=== PATIENT | female | born 1975 | race Caucasian/White ===

== ENCOUNTER 2025-04-01 15:29 | Outpatient (CLI) | payer OTHER, SELFPAY ==
--- NOTE | ~2025-04-01 | MM_ITS ---
EXAMINATION: MM screening mavis BI w jose HISTORY: Screening TECHNIQUE: Craniocaudal and mediolateral oblique 3-D tomosynthesis images were obtained and synthetic 2-D images were generated. CAD analysis was submitted and interpreted. COMPARISON: Comparison to multiple prior studies sequentially, with oldest reviewed study dated 01/13. BREAST PARENCHYMAL COMPOSITION: Dense: The breasts are extremely dense, which lowers the sensitivity of mammography. FINDINGS: There is no evidence of suspicious mass, calcification, or architectural distortion to sugg est malignancy in either breast. There has been no suspicious interval change. IMPRESSION: 1. No mammographic evidence of malignancy. 2. Recommend routine screening mammography in one year. BI-RADS Category 1: Negative Reviewed, dictated and finalized at location []
--- OUTSIDE RECORDS SUMMARY | 2025-04-01 15:35 | XMS_ITS | Clinical Summary ---
Author Organization [facility] Address [address] [place] [address] Care Team Providers Care Driver Engineer Name Role Phone Osiel Rowley MD Primary Care Provider [phone] Social History Tobacco Use Types Packs/Day Years Used Date Smoking Tobacco: Never Assessed Comments Unknown Sex and Gender Information Value Date Recorded Sex Assigned at Not on file Legal Sex Female 5:47 PM CDT Gender Identity Not on file Sexual Orientation Not on file Plan of Treatment Health Maintenance Due Date Last Done Comments Cervical Cancer Screening Pa p Smear (Age 30 to 64) Every 3 Years 1975 Colorectal Cancer Screening Colonoscopy (10 Years) 1975 Annual Physical 1978 Hepatitis C 1993 DTaP, Tdap and Td Vaccines ( 1 - Tdap) 1994 Hepatitis B Vaccines (1 of 3 - 19+ 3-dose series) 1994 Cervical Cancer Screening Pa p with HPV Testing (Age 30 to 64) Every 5 Years 2005 Cervical Cancer Screening with HPV 2005 Mammogram Screening 2015 COVID-19 Vaccine (2023-2 5 season) 2024 Meningococcal B Vaccine Aged Out No l onger eligible based on patient's age to complete this topic Meningococcal Vaccine Aged Out No bobby jose manuel eligible based on patient's age to complete this topic Pneumococcal Vaccine: Pediat rics (0 to 5 Years) and At-Risk Patients (6 to 49 Years) Aged Out No longer eligible b ased on patient's age to complete this topic RSV Immunizations Under 20 Months Aged Out No longer eligible based on patient's age to complete this topic Care Teams Driver Engineer Relationship Specialty Start Date End Date Osiel Rowley MD [facility] - General 08/08/12
--- OUTSIDE RECORDS SUMMARY | 2025-04-01 15:35 | XMS_ITS | Clinical Summary ---
Author Organization [facility] Address [address] [place] [address] Care Team Providers Care Tomography Technologist Name Role Phone Osiel Rowley MD Primary Care Provider Source Comments [facility] [employer],non-owned Affiliates and Associated Physician Practices is amultiple site organization consisting of ambulatory clinics and hospital sitesin [place], [place] and [place]. This disclosure is being madepursuant to the Care Everywhere program and may not contain all information available regarding this patient. Last updated 18.[facility] [employer] Allergies No known active allergies Medications * Be aware that medications may not be up to date on this document. Alwaysverify current medications with the patient. SUMAtriptan Succinate (IMITREX PO) Active Social History Tobacco Use Types Packs/Day Years Used Date Smoking Tobacco: Never Smokeless Tobacco: Never Comments Unknown Sex and Gender Information Value Date Recorded Sex Assigned at Not on file Legal Sex Female 10:03 AM TRAIN ELECTRONIC TECHNICIAN Gender Identity Not on file Sexual Orientation Not on file Last Filed Vital Signs Vital Sign Reading Time Taken Comments Blood Pressure 128/90 10/28/2016 5:07 PM TRAIN ELECTRONIC TECHNICIAN Pulse 88 10/17/2017 6:16 PM TRAIN ELECTRONIC TECHNICIAN Temperature 36.8 C (98.3 F) 10/17/2017 6:16 PM TRAIN ELECTRONIC TECHNICIAN Respiratory Rate 20 10/17/2017 6:16 PM TRAIN ELECTRONIC TECHNICIAN Oxygen Saturation 98% 10/28/2016 5:07 PM TRAIN ELECTRONIC TECHNICIAN Inhaled Oxygen Concentration - - Weight 68 kg (150 lb) 10/28/2016 5:07 PM TRAIN ELECTRONIC TECHNICIAN Height 175.3 cm (5' 9) 10/28/2016 5:07 PM TRAIN ELECTRONIC TECHNICIAN Body Mass Index 22.15 10/28/2016 5:07 PM TRAIN ELECTRONIC TECHNICIAN Plan of Treatment Health Maintenance Due Date Last Done Comments COLOGUARD (AGES 45-75) - COL ON CA SCREENING 1975 COLON MONITORING 1975 COLONOSCOPY - COLON CA SCREENING 1975 CT COLONOGRAPHY - COLON CA SCREENING 1975 Colorectal Cancer Screening 1975 FIT - COLON CA SCREENING 1975 FLEX SIG - COLON CA SCREENING 1975 LIPID TESTING 1975 MAMMOGRAM 1975 HIV SCREENING 1990 HEPATITIS C SCREENING 07/20/1993 DTAP/TDAP/TD VACCINES (1 - Tdap) 1994 HEPATITIS B VACCINE (1 of 3 - 19+ 3-dose series) 1994 PAP SMEAR 1996 COVID-19 VACCINE (1 - 2023-2 5 season) 2024 DEPRESSION SCREENING 09/19/2024 INFLUENZA VACCINE (#1) 2025 ZOSTER VACCINE (1 of 2) 2025 HIB VACCINE Aged Out No longer eligi ble based on patient's age to complete this topic HPV VACCINE Aged Out No longer eligi ble based on patient's age to complete this topic MENINGOCOCCAL (Group B) VACC INE SHARED DECISION-MAKING Aged Out No longer eligibl e based on patient's age to complete this topic MENINGOCOCCAL GROUPS A/C/Y/W VACCINE Aged Out No longer eligible b ased on patient's age to complete this topic Insurance [employer] Care Teams Tomography Technologist Relationship Specialty Start Date End Date Osiel Rowley MD [address] [place] [address] [place] [address] PCP - General Family Medicine 10/28/16
--- OUTSIDE RECORDS SUMMARY | 2025-04-01 15:36 | XMS_ITS | Clinical Summary ---
Author Organization [facility] [address] [facility] Address [address] [place] [address] Care Team Providers Care Senior Windows Engineer Name Role Phone Judy Avendano Primary Care Provider [phone] Allergies No known active allergies Medications aspirin 325 mg tablet Take 1 tablet (325 mg total) by mouth daily as needed for pain Takes with migraines Active ALPRAZolam (Xanax) 0.5 mg tablet 1 tablet (0.5 mg total) 7 Active SUMAtriptan (IMITREX) 100 mg tablet Rx: Sumatriptan Succinate 100 Tablet, TAKE: TAKE 1 TABLET BY MOUTH AT ONSET OF MIGRAINE; MAY REPEAT 1 TABLET IN 2 HOURS IF NEEDED, REFILLS: 0 Active propranoloL (INDERAL) 10 mg tablet Take 1 tablet (10 mg total) by mouth 2 (two) times a day 180 tablet 4 Active venlafaxine XR (EFFEXOR-XR) 75 mg 24 hr capsule Take 1 capsule (75 mg total) by mouth daily Take with food. 90 capsule 1 5 Active ubrogepant (Ubrelvy) 100 mg tabletIndication s:Other migraine with status migrainosus, not intractable TAKE 1 TABLET BY MOUTH ONCE SINGLE DOSE, MAY REPEAT ONCE AFTER 2 HOURS IF NEEDED 12 tablet 1 05/01/202 5 Active Active Problems Problem Noted Date Diagnosed Date Migraine 07/14/2024 Assessment & Plan (07/14/2024 9:18 PM CDT): This is a significant, separately identifiable problem that was evaluated and managed on the same day as the wellness exam Persistent migraine headaches. She runs out of her abortive medicine every month and has been borrowing friends and families. Discussed prevention medicine. She has not tried a beta-cecelia. Her blood pressure should hold it but advised this can be 1 of the side effects. Will start Inderal 10 mg b.i.d.. Encouraged her to monitor readings. If she begins to feel extremely dizzy lightheaded she may have to pull back on it. If she can tolerate will slowly try to titrate up the dose. Encouraged her to call in with readings in a few weeks Perimenopause 07/14/2024 Assessment & Plan (09/24/2024 8:03 PM MENTAL RETARDATION NURSE): Stabilized with EffexorXr 75. Happy with results. Continue same dose Refills to pharmacy Followup 3 months or sooner any problems or concerns. Assessment & Plan (07/14/2024 9:12 PM CDT): This is a significant, separately identifiable problem that was evaluated and managed on the same day as the wellness exam Patient states she has been seeing more and more emotional symptoms and thinks they are related to perimenopause. Has an IUD. Still feels like she has emotional changes about once a month. Very tearful at times. Willing to consider medication as it does seem to be affecting her day-to-day life. Reviewed risks benefits alternatives side effects and proper use. Discussed Effexor off label to help with emotional symptoms but also if she would have some hot flashes she may see improvement. She is willing to try. Take 37.5 mg x 1 week then increase to 75 BMI 25.0-25.9,adult 07/08/2023 Assessment & Plan (07/14/2024 9:14 PM CDT): Weight/BMI is in healthy range. Continue healthy lifestyle to maintain. Assessment & Plan (07/08/2023 11:41 PM CDT): Weight/BMI is in healthy range. Continue healthy lifestyle to maintain. Colon cancer screening 07/08/2023 Assessment & Plan (07/14/2024 9:14 PM CDT): Encouraged to follow back up with Dr. Norman and get rescheduled. Assessment & Plan (07/08/2023 11:42 PM CDT): Colon cancer screening due. Refer back to Dr. Will as last done in 2018 Breast cancer screening by mammogram 07/08/2023 Assessment & Plan (09/24/2024 8:03 PM MENTAL RETARDATION NURSE): Mammogram order provided Assessment & Plan (07/08/2023 11:42 PM CDT): Mammogram order provided Family history of colon cancer in mother 023 Assessment & Plan (07/08/2023 11:42 PM CDT): Due for colon cancer screening Situational anxiety 07/15/2017 Assessment & Plan (09/24/2024 8:03 PM MENTAL RETARDATION NURSE): Stabilized with EffexorXr 75. Happy with results. Continue same dose Refills to pharmacy Followup 3 months or sooner any problems or concerns. Scoliosis 10/19/2012 Assessment & Plan (07/14/2024 9:14 PM CDT): This is a significant, separately identifiable problem that was evaluated and managed on the same day as the wellness exam Patient states she was told she has scoliosis. Has been working with physical therapy as well as the chiropractor but is not seen consistent results. Her daughter has seen Fay Roman for injections and has had great results so would like referral for evaluation. Assessment & Plan (07/08/2023 11:41 PM CDT): Patient states longstanding scoliosis. Noticing more chronic back pain. Encouraged therapy. Order provided. Symptoms persist will send to [facility] scoliosis specialist Resolved Problems Problem Noted Date Diagnosed Date Resolved Date Encounter for immunization 07/14/2024 0 09/24/2024 Assessment & Plan (07/14/2024 9:16 PM CDT): Flu vaccine updated in the office today Hematuria 07/14/2024 09/24/2024 Assessment & Plan (07/14/2024 9:18 PM CDT): Blood in the urine today with a dip in the office. Will check microscopy to determine if further evaluation is needed. Patient currently is completely asymptomatic Need for vaccination 07/08/2023 024 Assessment & Plan (07/08/2023 11:42 PM CDT): Flu vaccine updated in the office today Need for Tdap vaccination 07/08/2023 Assessment & Plan (07/08/2023 11:42 PM CDT): Tdap updated in the office today Lipid screening 07/08/2023 07/14/2024 Assessment & Plan (07/08/2023 11:42 PM CDT): Check labs Diabetes mellitus screening 07/08/2023 07/14/2024 Assessment & Plan (07/08/2023 11:42 PM CDT): Check labs Fatigue 07/08/2023 09/24/2024 Assessment & Plan (07/08/2023 11:42 PM CDT): Probably multifactorial. Check labs and followup to re-evaluate Chronic migraine with aura a nd with status migrainosus, not intractable 07/08/2023 07/14/2024 Assessment & Plan (07/08/2023 11:43 PM CDT): Longstanding history of migraines. Responded well to you Yasmany and an aspirin. Continue to monitor Annual physical exam 07/08/2023 025 Assessment & Plan (07/14/2024 9:16 PM CDT): Encouraged healthy lifestyle, good nutrition and exercise. Encouraged Calcium and Vitamin D and weight bearing exercise for bone health. Reviewed immunizations Reviewed age appropirate screenings. Assessment & Plan (07/08/2023 11:46 PM CDT): Encouraged healthy lifestyle, good nutrition and exercise. Encouraged Calcium and Vitamin D and weight bearing exercise for bone health. Reviewed immunizations Reviewed age appropirate screenings. Intractable migraine without aura and without status migrainosus 07/15/2017 07/14/2024 Left shoulder pain 02/02/2016 5 Encounters Date Type Department Care Team Description 01/18/2025 Results Follow-Up [facility] Family Medicine [address] [address] Judy Avendano PA TSH, Comprehensive metabolic panel, CBC with auto differential, T4, free from Last 3 Months Immunizations Immunization Administration Dates Next Due Influenza, Quadrivalent, Spl it, Preservative Free, Intramuscular 06/29/2023,07/31/2018 Influenza, Trivalent, Preser vative Free, Intramuscular 07/04/2024,2016,07/14/2015 Tdap 06/29/2023 Surgical History Surgery Date Site/Laterality Comments US ABDOMEN COMPLETE W LIVER DOPPLER (C) 10/12/2018 R ight BREAST BIOPSY Medical History Medical History Date Comments Migraine Family History Medical History Relation Name Comments Colon cancer Mother Breast cancer Paternal Grandmother Relation Name Status Comments Brother Alive Father Alive Mother Alive Paternal Grandmother Sister Alive Social History Tobacco Use Types Packs/Day Years Used Date Smoking Tobacco: Never AUDIT-C Answer Date Recorded Q1: How often do you have a drink containing alc ohol? 2-4 times a month 07/04/2024 Q2: How many drinks containi ng alcohol do you have on a typical day when you are drinking? 1 or 2 07/04/2024 Q3: How often do you have si x or more drinks on one occasion? Never 07/04/2024 PHQ-2 Answer Date Recorded PHQ-2 Total Score (If total score is 3 or more points, staff should administer the PHQ-9) 0 07/04/2024 Comments No Sex and Gender Information Value Date Recorded Sex Assigned at Not on file Legal Sex Female 10:28 PM MENTAL RETARDATION NURSE Gender Identity Not on file Sexual Orientation Not on file Obstetrics History Para Term AB IAB SAB Ectopic Multiple Livin g Live Births 1 1 1 Date Outcome GA Total Labor Labor/2nd/3rd Weight Sex Type Anes PTL Pauly A1 A5 Name Clin Term Last Filed Vital Signs Vital Sign Reading Time Taken Comments Blood Pressure 118/74 07/04/2024 1:05 PM CDT Pulse 70 07/04/2024 1:05 PM CDT Temperature 37.2 C (98.9 F) 07/04/2024 1:05 PM CDT Respiratory Rate 18 07/04/2024 1:05 PM CDT Oxygen Saturation 98% 07/04/2024 1:05 PM CDT Inhaled Oxygen Concentration - - Weight 74.8 kg (165 lb) 07/04/2024 1:05 PM CDT Height 172.7 cm (5' 8) 07/04/2024 1:05 PM CDT Body Mass Index 25.09 07/04/2024 1:05 PM CDT Plan of Treatment Health Maintenance Due Date Last Done Comments Cervical Cancer Screening 1975 Colon Cancer Screening-Colonoscopy 1975 Hepatitis C Screening 1975 Hepatitis B Screening 1993 Covid-19 Vaccine ( season) 2024 03/05/2021, 02/12/2021 Breast Cancer Screening-Mammogram 10/31/2024 10/31/2023 Depression Screening 07/04/2025 07/04/2024, 06/29/2023, 06/29/2023 Regular Well Visit/Exam 18-64 07/04/2025 07/04/2024, 06/29/2023 DTaP/Tdap/Td Vaccine (2 - Td or Tdap) 06/29/2033 06/29/2023 Influenza Vaccine Completed 07/04/2024, , 07/31/2018, Additional history exists Pneumococcal vaccine <65 Aged Out No longer eligible based on patient's age to complete this topic Procedures Procedure Name Priority Date/Time Associated Diagnosis Comments SCREENING MAMMOGRAM BILATERAL W DEEDEE Schedule Routine, Read Routine (OP Routine) 10/31/2023 3:26 PM MENTAL RETARDATION NURSE Breast cancer screening by mammogram from Last 3 Months or Most Recently Relevant to Health Maintenance Results * Screening Mammogram Bilateral W Deedee (10/31/2023 3:26 PM MENTAL RETARDATION NURSE) Anatomical Region Laterality Modality Breast Bilateral Mammography Impressions 11/01/2023 1:18 PM MENTAL RETARDATION NURSE BI-RADS ATLAS category (overall): 2 - Benign There is no mammographic evidence of malignancy. A 1 year screening mammogram is recommended. The patient has been or will be contacted. We recommend annual screening mammography for women at average risk of breast cancer beginning at age 40, based on guidelines of the [employer] (ACR Practice Parameter for the Performance of Screening and Diagnostic Mammography) and [employer]. For women with and elevated risk of breast cancer, please refer to the ACR Practice Parameter for specific screening recommendations. The patient will be entered into a reminder system with a target due date of 1 year for her next screening exam. Narrative 11/01/2023 1:18 PM MENTAL RETARDATION NURSE Screening Mammogram Bilateral W Deedee: 10/31/23 The study was acquired using full field digital technology and interpreted from soft copy. 2D digital mammographic views, as well as 3D digital tomosynthesis were performed in the CC and MLO projections. CLINICAL: Breast cancer screening by mammogram. No relevant medical history has been documented for this patient. History of breast cancer in Paternal Grandmother. COMPARISONS: 01/27/2017 Breast Imaging US Outside Reference 01/27/2017 Breast Imaging Diagnostic Outside Reference 01/13/2017 Breast Imaging Screening Outside Reference BREAST TISSUE: The breasts are heterogeneously dense, which may obscure small masses. FINDINGS: There are multiple similar appearing round and oval circumscribed masses in the upper outer left breast, [id number] depth. Accounting for differences in imaging technique, these masses appear largely similar to prior outside exams, characterized as benign cysts on previous ultrasound. There is no definite new suspicious finding in either breast on mammogram. us Judy NIELSEN IMTadeo MAMMO PROCEDURES Final Result from Last 3 Months or Most Recently Relevant to Health Maintenance Insurance [facility] Address: [address] [address] [place] [address] [facility] Care Teams Senior Windows Engineer Relationship Specialty Start Date End Date Judy Avendano PA [address] [address] PCP - General Internal Medicine 05/09/23
--- OUTSIDE RECORDS SUMMARY | 2025-04-01 15:36 | XMS_ITS | Encounter Summary ---
Author Organization [facility] Care Team Providers Care Density Control Puncher Name Role Phone Judy Avendano Primary Care Provider [phone]- [phone] Encounter Details Date Type Department Care Team (Latest Contact Info) Description 10/26/2018 Orders Only [facility] CLINCONV Provider, MD Jared [address] [place] [address] Social History Tobacco Use Types Packs/Day Years Used Date Smoking Tobacco: Never Comments Unknown Sex and Gender Information Value Date Recorded Sex Assigned at Not on file Legal Sex Female 10:28 PM MEN'S GOLF COACH Gender Identity Not on file Sexual Orientation Not on file documented as of this encounter Plan of Treatment Not on file documented as of this encounter Procedures Procedure Name Priority Date/Time Associated Diagnosis Comments COLONOSCOPY - SCAN 10/26/2018 12 :00 AM MEN'S GOLF COACH documented in this encounter Results * COLONOSCOPY - SCAN (10/26/2018 12:00 AM MEN'S GOLF COACH) Narrative 10/26/2018 12:00 AM MEN'S GOLF COACH Ordered by an unspecified provider. us Historical Provider Final Res ult documented in this encounter Visit Diagnoses Not on filedocumented in this encounter Additional Health Concerns Infection Onset Date Last Indicated Resolved Time COVID: Suspected 11/02/2023 11/02/202311/0211/02/2023 11:31 AM MEN'S GOLF COACH Influenza, adult 11/02/2023 11/02/2023 11/09/2023 3:05 AM MEN'S GOLF COACH documented as of this encounter Care Teams Density Control Puncher Relationship Specialty Start Date End Date Judy Avendano PA [address] [facility] [address] [place] [address] PCP - General Internal Medicine 05/09/23 documented as of this encounter
--- OUTSIDE RECORDS SUMMARY | 2025-04-01 15:36 | XMS_ITS | Referral Summary ---
Author Organization [facility] [address] [facility] Address [address] [place] [address] Care Team Providers Care Wirer Name Role Phone Judy Avendano Primary Care Provider [phone]- [phone] Encounters Date Type Department Care Team Description 01/18/2025 Results Follow-Up [facility] Family Medicine [address] [facility] [address] [place] [address] Judy Avendano PA TSH, Comprehensive metabolic panel, CBC with auto differential, T4, free from Last 3 Months Allergies No known active allergies Medications aspirin [...] 2 HOURS IF NEEDED 12 tablet 1 5 Active Active Problems Problem Noted Date [...] 07/14/2024 Assessment & Plan (09/24/2024 8:03 PM SALES AND MARKETING PROFESSIONAL): Stabilized with EffexorXr 75. Happy with results. [...] 07/08/2023 Assessment & Plan (09/24/2024 8:03 PM SALES AND MARKETING PROFESSIONAL): Mammogram order provided Assessment & Plan (07/08/2023 11:42 PM CDT): Mammogram order provided Family history of colon cancer in mother 023 Assessment & Plan (07/08/2023 11:42 PM CDT): Due for colon cancer screening Situational anxiety 07/15/2017 Assessment & Plan (09/24/2024 8:03 PM SALES AND MARKETING PROFESSIONAL): Stabilized with EffexorXr 75. Happy with results. [...] Order provided. Symptoms persist will send to [facility] scoliosis specialist Resolved Problems Problem Noted [...] is completely asymptomatic Need for vaccination 07/08/2023 Assessment & Plan (07/08/2023 11:42 [...] 07/15/2017 07/14/2024 Left shoulder pain 02/02/2016 5 Immunizations Immunization Administration Dates Next Due Influenza, Quadrivalent, Spl it, Preservative Free, Intramuscular 06/29/2023,07/31/2018 Influenza, Trivalent, Preser vative Free, Intramuscular 07/04/2024,2016,07/14/2015 Tdap 06/29/2023 Social History Tobacco Use Types Packs/Day Years [...] on file Legal Sex Female 10:28 PM SALES AND MARKETING PROFESSIONAL Gender Identity Not on file Sexual Orientation [...] 07/04/2024 1:05 PM CDT Plan of Treatment Not on file Procedures Procedure Name Priority Date/Time Associated Diagnosis Comments SCREENING MAMMOGRAM BILATERAL W DEEDEE Schedule Routine, Read Routine (OP Routine) 10/31/2023 3:26 PM SALES AND MARKETING PROFESSIONAL Breast cancer screening by mammogram from Last 3 Months or Most Recently Relevant to Health Maintenance Results * Screening Mammogram Bilateral W Deedee (10/31/2023 3:26 PM SALES AND MARKETING PROFESSIONAL) Anatomical Region Laterality Modality Breast Bilateral Mammography Impressions 11/01/2023 1:18 PM SALES AND MARKETING PROFESSIONAL BI-RADS ATLAS category (overall): 2 - Benign There is no mammographic evidence of malignancy. A 1 year screening mammogram is recommended. The patient has been or will be contacted. We recommend annual screening mammography for women at average risk of breast cancer beginning at age 40, based on guidelines of the [employer] (ACR Practice Parameter for the Performance of Screening and Diagnostic Mammography) and [employer]. For women with and elevated risk of breast cancer, please refer to the ACR Practice Parameter for specific screening recommendations. The patient will be entered into a reminder system with a target due date of 1 year for her next screening exam. Narrative 11/01/2023 1:18 PM SALES AND MARKETING PROFESSIONAL Screening Mammogram Bilateral W Deedee: 10/31/23 The [...] masses in the upper outer left breast, [id number] depth. Accounting for differences in imaging technique, these masses appear largely similar to prior outside exams, characterized as benign cysts on previous ultrasound. There is no definite new suspicious finding in either breast on mammogram. us Judy NIELSEN IMG MAMMO PROCEDURES Final Result from Last 3 Months or Most Recently Relevant to Health Maintenance Insurance [facility] CHOICE [facility] Care Teams Wirer Relationship Specialty Start Date End Date Judy Avendano PA [address] [facility] [address] [place] [address] PCP - General Internal Medicine 05/09/23
--- OUTSIDE RECORDS SUMMARY | 2025-04-01 15:36 | XMS_ITS | Clinical Summary ---
Author Organization [facility] Address [address] [place] [address] Care Team Providers Care Dental Service Technician Name Role Phone Unavailable Primary Care Provider Unavailabl e Social History Tobacco Use Types Packs/Day Years Used Date Smoking Tobacco: Never Assessed Comments Unknown Sex and Gender Information Value Date Recorded Sex Assigned at Not on file Legal Sex Female 10:48 AM APPOINTMENT SETTER Gender Identity Not on file Sexual Orientation Not on file Plan of Treatment Health Maintenance Due Date Last Done Comments Hepatitis C Virus (HCV) Screening 1975 TdaP Immunization 1975 Hepatitis B Immunization (1 of 3 - 19+ 3-dose series) 1994 Pap Smear 1996 Cervical Cancer Screening (CCS) 2005 HPV/Cotest 2005 Discussion re Starting/Frequency of Mammograms 2015 Colonoscopy 2020 Colorectal Cancer Screening 2020 Influenza Immunization (#1) 05/20/202407/20, 2016, 07/14/2015 SARS-COV-2 Immunization ( season) 2024 Respiratory Syncytial Virus (RSV) Immunization (Adult) (1 - 1-dose 75+ series) 2050 Meningococcal Immunization (ACWY) Aged Out No longer eligible b ased on patient's age to complete this topic Pneumococcal Immunization Combined Aged Out No longer eligible b ased on patient's age to complete this topic Rotavirus Immunization Aged Out No lo nger eligible based on patient's age to complete this topic Insurance [employer] on file
--- OUTSIDE RECORDS SUMMARY | 2025-04-01 15:36 | XMS_ITS | Continuity of Care Document ---
Author Organization [facility] Address [address] [place] [address] Phone Care Team Providers Care Forensic Artist Name Role Phone Galdamez OD, Benjamín Unavailable Unavailable Procedures Procedure Date Contact Lens Hydrophilic, Spherical Medical Tax Contact Lens Hydrophilic, Spherical Tax - Medical Contact Lens Check Contact Lens Check Contact Lens Check Contact Lens Hydrophilic, Spherical Silent Circle Medical Eye Exam & Treatment Office/outpatient Visit, Est Office/outpatient Visit, Est Eye Exam & Treatment Refraction CL Replacement - Vistakon Disp W/BW Soft Tax - Medical Eye Exam & Treatment Refraction CL Replacement - Vistakon Disp W/BW Soft [facility] Medical Advance Directives Directive Yes / No Effective Date File Name No Information Encounters Encounter Description Practice Location Reason(s) For Visit Diagnoses Date Provider Providers Copied on Encounter [facility], [address], [place], [place], [id number], [place] tel:[phone] [facility] No Information Oct-2 9-201 0 Galdamez OD Benjamín. [address], [place], [address], [place]. tel:[phone] [facility], [address], [place], [place], [address], [place] tel:[phone] [facility] No Information Per-0 2-201 0 Galdamez OD Benjamín. [address], [place], [place], [facility], [place]. tel:[phone] [facility], [address], [place], [place], [address], [place] tel:[phone] [facility] No Information Apr-0 1-201 0 Galdamez OD Benjamín. [address], [place], [facility], [place]. tel:[phone] [facility], [address], [place], [place], [address], [place] tel:[phone] [facility] No Information Papito-2 1-201 0 Galdamez OD Benjamín. [address], [place], [facility], [place]. tel:[phone] [facility], [address], [place], [place], [address], [place] tel:[phone] [facility] No Information Papito-1 4-201 0 Galdamez OD Benjamín. [address], [place], [facility], [place]. tel:[phone] [facility], [address], [place], [place], [address], [place] tel:[phone] [facility] No Information Papito-0 7-201 0 Galdamez OD Benjamín. [address], [place], [facility], [place]. tel:[phone] Office/outpat ient Visit, Est [facility], [address], [place], [place], [address], [place] tel:[phone] [facility] No Information Dec-1 7-200 9 Galdamez OD Benjamín. [address], [place], [address], [place]. tel:[phone] Office/outpat ient Visit, Est [facility], [address], [place], [place], [id number], tel:[phone] [facility] No Information Dec-0 7-200 [address], [place], [facility], [place]. tel:[phone] [facility], [address], [place], [place], [address], tel:[phone] [facility] No Information Nov-1 3-200 8 Galdamez OD Benjamín. [address], [place], [facility], [place]. tel:[phone] [facility], [address], [place], [place], [address], [place] tel:[phone] [facility] No Information Sep-1 8-200 7 Galdamez OD Benjamín. [address], [place], [facility], . tel:[phone] Family History Family Member Type Diagnosis Age At Onset No Information Payers Payer name Insurance type Covered republican ID Authoriza tion(s) No Information Social History Type Description Quantity Date Captured Comments Sex Female Smoking Status No Information Chief Complaint And Reason For Visit No Information Reason For Referral Reason For Referral No Information History Of Present Illness Encounter Date Complaint History Of Prese nt Illness No Information Functional Status Date Functional Assessmen t No Information Instructions Date Instruction Additional Infor mation No Information Assessments Type Assessment Date No Information Patient Care Teams Name Effective Dates (start - stop) Status Members No Information
--- OUTSIDE RECORDS SUMMARY | 2025-04-01 15:36 | XMS_ITS | Encounter Summary ---
Author Organization [facility] Address [address] [place] [address] Care Team Providers Care Guitar Teacher Name Role Phone Osiel Rowley MD Primary Care Provider Encounter Details Date Type Department Care Team (Late st Contact Info) Description 09/23/2023 Lab Requisition [facility] - DermPath Lab [address] [place] [id number] Man Funes MD [address] [place] [address] Social History Tobacco Use Types Packs/Day Years Used Date Smoking Tobacco: Never Smokeless Tobacco: Never Comments Unknown Sex and Gender Information Value Date Recorded Sex Assigned at Not on file Legal Sex Female 10:03 AM PHOTOGRAPHIC DOUBLE Gender Identity Not on file Sexual Orientation Not on file documented as of this encounter Plan of Treatment Not on file documented as of this encounter Procedures Procedure Name Priority Date/Time Associated Diagnosis Comments DERMATOPATHOLOGY Routine 09/22/2023 12:0 0 AM PHOTOGRAPHIC DOUBLE documented in this encounter Results * DERMATOPATHOLOGY (09/22/2023 12:00 AM PHOTOGRAPHIC DOUBLE) Case Report Dermatopathology Report Case: [id number] Authorizing Provider: Man Funes MD Collected: 09/22/2023 12:00 AM Ordering Location: [facility] DermPath Lab Received: 09/23/2023 12:54 PM Pathologist: Mara Youssef MD Specimen: Skin, left preauricular 12:56 PM PHOTOGRAPHIC DOUBLE DERMATOPATHOLOGY LABORATORY Final Diagnosis Specimen A. SKIN, left preauricular: COMPOUND MELANOCYTIC NEVUS, IRRITATED (D22.39) (see microscopic description) 12:56 PM [facility] DERMATOPATHOLOGY LABORATORY at [address] PHOTOGRAPHIC DOUBLE Clinical History Nevus R/O atypia. Path#[id number] 12:56 PM [facility] DERMATOPATHOLOGY LABORATORY Gross Description Specimen A: Received is one formalin filled container labeled with the patient's name and designated left preauricular. The specimen consists of a shave biopsy measuring 3x1x1 mm. Jar 0. 12:56 PM [facility] DERMATOPATHOLOGY LABORATORY Microscopic Description Specimen A. SKIN, left preauricular: There is melanin pigment in the stratum corneum. There are nests of melanocytes at the dermal-epidermal junction and within the dermis. Additional deeper sections were obtained and reviewed. 12:56 PM [facility] DERMATOPATHOLOGY LABORATORY Disclaimer An external and internal positive and negative controls are appropriate for the histochemical, immunohistochemical and immunofluorescence stain(s) in this case (if any), except where stated explicitly. The performance characteristics of the stain(s) cited in this report were developed and its performance characteristic determined by the Dermatopathology Laboratory at [facility], directed by Dr. Opal Sandoval. These tests need not be, and therefore are not, approved by the [place] Food and Drug Administration. The tests are used for clinical purposes. Billing Codes Specimen Charges Stain Charges 51929 1 12:56 PM [facility] DERMATOPATHOLOGY LABORATORY Embedded Images 12:56 PM [facility] DERMATOPATHOLOGY LABORATORY Pathology/Cytolog y TISSUE SPECIMEN FROM SKIN / Unknown 09/22/2023 09/23/2023 12:54 PM [facility] us Man Funes MD LAB - PATHOLOGY/CYTOLOGY ORDER TOM Final Result DERMATOPATHOLOGY LABORATORY [facility] - Department of Dermatology [address], [address] [phone] documented in this encounter Visit Diagnoses Not on filedocumented in this encounter Care Teams Guitar Teacher Relationship Specialty Start Date End Date Osiel Rowley MD [address] [place] [phone] PCP - General Family Medicine 10/28/16 documented as of this encounter
== END 2025-04-01 15:30 | disposition home or self-care (01) ==
LOC: ANHIMG 15:32
PROVIDERS: PCP Physician Assistant; Visit Provider Physician Assistant
DX: Z12.31 Encounter for screening mammogram for malignant neoplasm of breast (principal)
CPT/HCPCS: 77063; 77067

== ENCOUNTER 2025-04-24 02:58 | Day surgery (SDC) | payer OTHER, SELFPAY ==
[2025-04-08 14:34] VITALS: BMI 25.5
--- OUTSIDE RECORDS SUMMARY | 2025-04-24 03:01 | XMS_ITS | Clinical Summary ---
Author Organization [facility] Address [address] [place] [address] Care Team Providers Care Engrosser Name Role Phone Osiel Rowley MD Primary Care Provider Source Comments [facility],non-owned Affiliates and Associated Physician Practices is amultiple site organization consisting of ambulatory clinics and hospital sitesin [place], [place], [place] and [place]. This disclosure is being madepursuant to the Care Everywhere program and may not contain all information available regarding this patient. Last updated 18.[facility] Allergies No known active allergies Medications * [...] on file Legal Sex Female 10:03 AM COREMAKING MACHINE SETTER Gender Identity Not on file Sexual Orientation Not on file Last Filed Vital Signs Vital Sign Reading Time Taken Comments Blood Pressure 128/90 10/28/2016 5:07 PM COREMAKING MACHINE SETTER Pulse 88 10/17/2017 6:16 PM COREMAKING MACHINE SETTER Temperature 36.8 C (98.3 F) 10/17/2017 6:16 PM COREMAKING MACHINE SETTER Respiratory Rate 20 10/17/2017 6:16 PM COREMAKING MACHINE SETTER Oxygen Saturation 98% 10/28/2016 5:07 PM COREMAKING MACHINE SETTER Inhaled Oxygen Concentration - - Weight 68 kg (150 lb) 10/28/2016 5:07 PM COREMAKING MACHINE SETTER Height 175.3 cm (5' 9) 10/28/2016 5:07 PM COREMAKING MACHINE SETTER Body Mass Index 22.15 10/28/2016 5:07 PM COREMAKING MACHINE SETTER Plan of Treatment Health Maintenance Due Date [...] complete this topic Insurance [employer] Care Teams Engrosser Relationship Specialty Start Date End Date Osiel Rowley MD [address] [place] [address] [place] [address] PCP - General Family Medicine 10/28/16
--- OUTSIDE RECORDS SUMMARY | 2025-04-24 03:01 | XMS_ITS | Continuity of Care Document ---
Author Organization [facility] Address [address] [place] [address] Phone Care Team Providers Care Content Engineer Name Role Phone Galdamez OD, Benjamín Unavailable Unavailable Procedures Procedure Date Contact Lens Hydrophilic, Spherical Medical Tax Contact Lens Hydrophilic, Spherical Tax - Medical Contact Lens Check Contact Lens Check Contact Lens Check Contact Lens Hydrophilic, Spherical ClickEquations - Medical Eye Exam & Treatment Office/outpatient Visit, Est Office/outpatient Visit, Est Eye Exam & Treatment Refraction CL Replacement - Vistakon Disp W/BW Soft Tax - Medical Eye Exam & Treatment Refraction CL Replacement - Vistakon Disp W/BW Soft [facility] - Medical Advance Directives Directive Yes / No Effective Date File Name No Information Encounters Encounter Description Practice Location Reason(s) For Visit Diagnoses Date Provider Providers Copied on Encounter [facility], [address], [place], [place], [address], [place] tel:[phone] [facility] No Information Jun-2 9-201 0 Galdamez OD Benjamín. [address], [place], [address], [place]. tel:[phone] [facility], [address], [place], [place], [address], [place] tel:[phone] [facility] No Information Per-0 2-201 0 Galdamez OD Benjamín. [address], [place], [place], [facility], [place]. tel:[phone] [facility], [address], [place], [place], [address], [place] tel:[phone] [facility] No Information Apr-0 1-201 0 Galdamez OD Benjamín. [address], [place], [place], [facility], [place]. tel:[phone] [facility], [address], [place], [place], [address], [place] tel:[phone] [facility] No Information Papito-2 1-201 0 Galdamez OD Benjamín. [address], [place], [place], [facility], [place]. tel:[phone] [facility], [address], [place], [place], [address], [place] tel:[phone] [facility] No Information Papito-1 4-201 0 Galdamez OD Benjamín. [address], [place], [facility], [place]. tel:[phone] [facility], [address], [place], [place], [address], [place] tel:[phone] [facility] No Information Papito-0 7-201 0 Galdamez OD Benjamín. [address], [place], [facility], [place]. tel:[phone] Office/outpat ient Visit, Est [facility], [address], [place], [place], [address], [place] tel:[phone] [facility] No Information Dec-1 7-200 9 Galdamez OD Benjamín. [address], [place], [address], [place]. tel:[phone] Office/outpat ient Visit, Est [facility], [address], [place], [place], [address], tel:[phone] [facility] No Information Dec-0 7-200 9 Doisy Edward. [address], [place], [facility], [place]. tel:[phone] [facility], [address], [place], [place], [address], tel:[phone] [facility] No Information Nov-1 3-200 8 Galdamez OD Benjamín. [address], [place], [facility], [place]. tel:[phone] [facility], [address], [place], [place], [address], [place] tel:[phone] [facility] No Information Sep-1 8-200 7 Galdamez OD Benjamín. [address], [place], [address], . tel:[phone] Family History Family Member Type Diagnosis Age At Onset No Information Payers Payer name Insurance type Covered constitution party ID Authoriza tion(s) No Information Social History [...]
--- OUTSIDE RECORDS SUMMARY | 2025-04-24 03:01 | XMS_ITS | Clinical Summary ---
Author Organization [facility] [address] [facility] Address [address] [place] [address] Care Team Providers Care Kiln Door Builder Name Role Phone Judy Avendano Primary Care Provider [phone] Allergies No known active allergies Medications aspirin 325 mg tablet Take 1 tablet (325 mg total) by mouth daily as needed for pain Takes with migraines Active ALPRAZolam (Xanax) 0.5 mg tablet 1 tablet (0.5 mg total) 07/15/20 17 Active SUMAtriptan (IMITREX) 100 mg tablet Rx: Sumatriptan Succinate 100 Tablet, TAKE: TAKE 1 TABLET BY MOUTH AT ONSET OF MIGRAINE; MAY REPEAT 1 TABLET IN 2 HOURS IF NEEDED, REFILLS: 0 Active propranoloL (INDERAL) 10 mg tablet Take 1 tablet (10 mg total) by mouth 2 (two) times a day 180 tablet 07/04/20 24 Active venlafaxine XR (EFFEXOR-XR) 75 mg 24 hr capsule Take 1 capsule (75 mg total) by mouth daily Take with food. 90 capsule 1 09/24/19 25 Active Ubrelvy 100 mg tabletIndicatio ns:Other migraine with status migrainosus, not intractable TAKE 1 TABLET BY MOUTH ONCE SINGLE DOSE, MAY REPEAT ONCE AFTER 2 HOURS IF NEEDED 12 tablet 1 04/18/20 25 Active ubrogepant (Ubrelvy) 100 mg tabletIndicatio ns:Other migraine with status migrainosus, not intractable TAKE 1 TABLET BY MOUTH ONCE SINGLE DOSE, MAY REPEAT ONCE AFTER 2 HOURS IF NEEDED 12 tablet 1 01/18/20 25 025 Discontinued Active Problems Problem Noted Date Diagnosed Date [...] 07/14/2024 Assessment & Plan (09/24/2024 8:03 PM EKG/ECG TECHNICIAN): Stabilized with EffexorXr 75. Happy with results. [...] 07/08/2023 Assessment & Plan (09/24/2024 8:03 PM EKG/ECG TECHNICIAN): Mammogram order provided Assessment & Plan (07/08/2023 11:42 PM CDT): Mammogram order provided Family history of colon cancer in mother 023 Assessment & Plan (07/08/2023 11:42 PM CDT): Due for colon cancer screening Situational anxiety 07/15/2017 Assessment & Plan (09/24/2024 8:03 PM EKG/ECG TECHNICIAN): Stabilized with EffexorXr 75. Happy with results. [...] Order provided. Symptoms persist will send to [facility] scoliosis specialist Resolved Problems Problem Noted Date [...] migrainosus 07/15/2017 07/14/2024 Left shoulder pain 02/02/2016 Encounters Date Type Department Care Team Description 04/02/2025 [place] [address] Judy Avendano PA MAMMOGRAPHY 04/02/2025 Orders Only [address] [place] [address] Provider, MD Jared from Last 3 Months Immunizations Immunization Administration [...] on file Legal Sex Female 10:28 PM EKG/ECG TECHNICIAN Gender Identity Not on file Sexual Orientation Not on file Obstetrics History Para Term AB IAB SAB Ectopic Multiple Livin g Live Births 1 1 1 Date Outcome GA Total Labor Labor//3rd Weight Sex Type Anes PTL Pauly A1 [...] Covid-19 Vaccine ( season) 2024 03/05/2021, 02/12/2021 Influenza Vaccine (#1) 2025 , 06/29/2023, 07/31/2018, Additional history exists Depression Screening 07/04/2025 07/04/2024, 06/29/2023, 06/29/2023 Regular Well Visit/Exam 18-64 07/04/2025 07/04/2024, 06/29/2023 Breast Cancer Screening-Mammogram 04/01/2026 04/01/2025, 10/31/2023 DTaP/Tdap/Td Vaccine (2 - Td or Tdap) 06/29/2033 06/29/2023 Pneumococcal vaccine <65 Aged Out No longer eligible based on patient's age to complete this topic Procedures Procedure Name Priority Date/Time Associated Diagnosis Comments MAMMOGRAPHY Routine 04/01/2025 11:52 AM CDT from Last 3 Months Results * MAMMOGRAPHY (04/01/2025 11:52 AM CDT) Mammography Normal Impressions Cassandra Hill MA - 04/01/2025 11:52 AM CDT There is no mammographic evidence of malignancy. A 1 year screening mammogram is recommended. Bi-Rads Category 1: Negative us Historical Provider HEALTH MAINTENANCE Edited Result - Final from Last 3 Months Insurance [facility] CHOICE [facility] HMO/PPO Address: [facility] [address] [place] [address] [employer] [facility] Care Teams Kiln Door Builder Relationship Specialty Start Date End Date Judy Avendano PA [address] [facility] [address] [place] [address] PCP - General Internal Medicine 05/09/23
--- OUTSIDE RECORDS SUMMARY | 2025-04-24 03:01 | XMS_ITS | Encounter Summary ---
Author Organization [facility] Address [address] [place] [address] Care Team Providers Care Crm Campaign Manager Name Role Phone Osiel Rowley MD Primary Care Provider [phone] Encounter Details Date Type Department Care Team (Late st Contact Info) Description 09/23/2023 Lab Requisition [facility] - DermPath Lab [address] [place] [id number] Man Funes MD [address] [place] [address] Social History Tobacco Use Types Packs/Day Years Used Date Smoking Tobacco: Never Smokeless Tobacco: Never Comments Unknown Sex and Gender Information Value Date Recorded Sex Assigned at Not on file Legal Sex Female 10:03 AM SENIOR STRATEGY MANAGER Gender Identity Not on file Sexual Orientation Not on file documented as of this encounter Plan of Treatment Not on file documented as of this encounter Procedures Procedure Name Priority Date/Time Associated Diagnosis Comments DERMATOPATHOLOGY Routine 09/22/2023 12:0 0 AM SENIOR STRATEGY MANAGER documented in this encounter Results * DERMATOPATHOLOGY (09/22/2023 12:00 AM SENIOR STRATEGY MANAGER) Case Report Dermatopathology Report Case: [id number] Authorizing Provider: Man Funes MD Collected: 09/22/2023 12:00 AM Ordering Location: [facility] DermPath Lab Received: 09/23/2023 12:54 PM Pathologist: Mara Youssef MD Specimen: Skin, left preauricular 12:56 PM SENIOR STRATEGY MANAGER DERMATOPATHOLOGY LABORATORY Final Diagnosis Specimen A. SKIN, left preauricular: COMPOUND MELANOCYTIC NEVUS, IRRITATED (D22.39) (see microscopic description) 12:56 PM [facility] DERMATOPATHOLOGY LABORATORY at [address] SENIOR STRATEGY MANAGER Clinical History Nevus R/O atypia. Path#[id number] 12:56 PM [facility] DERMATOPATHOLOGY LABORATORY Gross Description Specimen A: Received is one formalin filled container labeled with the patient's name and designated left preauricular. The specimen consists of a shave biopsy measuring 3x1x1 mm. Jar 0. 12:56 PM [facility] DERMATOPATHOLOGY LABORATORY Microscopic Description Specimen A. SKIN, left preauricular: There is melanin pigment in the stratum corneum. There are nests of melanocytes at the dermal-epidermal junction and within the dermis. Additional deeper sections were obtained and reviewed. 12:56 PM [facility] DERMATOPATHOLOGY LABORATORY Disclaimer An external and internal positive and negative controls are appropriate for the histochemical, immunohistochemical and immunofluorescence stain(s) in this case (if any), except where stated explicitly. The performance characteristics of the stain(s) cited in this report were developed and its performance characteristic determined by the Dermatopathology Laboratory at [facility], directed by Dr. Opal Sandoval. These tests need not be, and therefore are not, approved by the [place] Food and Drug Administration. The tests are used for clinical purposes. Billing Codes Specimen Charges Stain Charges 03607 1 12:56 PM [facility] DERMATOPATHOLOGY LABORATORY Embedded Images 12:56 PM [facility] DERMATOPATHOLOGY LABORATORY Pathology/Cytolog y TISSUE SPECIMEN FROM SKIN / Unknown 09/22/2023 09/23/2023 12:54 PM [facility] us Man Funes MD LAB - PATHOLOGY/CYTOLOGY ORDER TOM Final Result DERMATOPATHOLOGY LABORATORY [facility] - Department of Dermatology [address], [address] [phone] documented in this encounter Visit Diagnoses Not on filedocumented in this encounter Care Teams Crm Campaign Manager Relationship Specialty Start Date End Date Osiel Rowley MD [address] [place] [address] [place] [phone] PCP - General Family Medicine 10/28/16 documented as of this encounter
--- OUTSIDE RECORDS SUMMARY | 2025-04-24 03:01 | XMS_ITS | Clinical Summary ---
Author Organization [facility] Address [address] [place] [address] Care Team Providers Care Flat Cutter Name Role Phone Osiel Rowley MD Primary Care Provider [phone] Social History Tobacco Use Types Packs/Day Years [...] age to complete this topic Care Teams Flat Cutter Relationship Specialty Start Date End Date Osiel Rowley MD [facility] - General 08/08/12
--- OUTSIDE RECORDS SUMMARY | 2025-04-24 03:01 | XMS_ITS | Encounter Summary ---
Author Organization [facility] Care Team Providers Care Safety Supervisor Name Role Phone Judy Avendano Primary Care Provider [phone] Encounter Details Date Type Department Care Team (Latest Contact Info) Description 10/26/2018 Orders Only [facility] Provider, MD Jared [address] [place] [id number] Social History Tobacco Use Types Packs/Day Years Used Date Smoking Tobacco: Never Comments Unknown Sex and Gender Information Value Date Recorded Sex Assigned at Not on file Legal Sex Female 10:28 PM DIESEL MAINTENANCE ELECTRICIAN Gender Identity Not on file Sexual Orientation Not on file documented as of this encounter Plan of Treatment Not on file documented as of this encounter Procedures Procedure Name Priority Date/Time Associated Diagnosis Comments COLONOSCOPY - SCAN 10/26/2018 12 :00 AM DIESEL MAINTENANCE ELECTRICIAN documented in this encounter Results * COLONOSCOPY - SCAN (10/26/2018 12:00 AM DIESEL MAINTENANCE ELECTRICIAN) Narrative 10/26/2018 12:00 AM DIESEL MAINTENANCE ELECTRICIAN Ordered by an unspecified provider. us Historical Provider Final Res ult documented in this encounter Visit Diagnoses Not on filedocumented in this encounter Additional Health Concerns Infection Onset Date Last Indicated Resolved Time COVID: Suspected 11/02/2023 11/02/202311/0211/02/2023 11:31 AM DIESEL MAINTENANCE ELECTRICIAN Influenza, adult 11/02/2023 11/02/2023 11/09/2023 3:05 AM DIESEL MAINTENANCE ELECTRICIAN documented as of this encounter Care Teams Safety Supervisor Relationship Specialty Start Date End Date Judy Avendano PA [address] [facility] [address] [place] [address] PCP - General Internal Medicine 05/09/23 documented as of this encounter
--- OUTSIDE RECORDS SUMMARY | 2025-04-24 03:01 | XMS_ITS | Encounter Summary ---
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 documented in this encounter Plan of Treatment Not on file documented as of this encounter Visit Diagnoses Not on filedocumented in this encounter Care Teams Director Pharmacovigilance Relationship Specialty Start Date End Date Judy Avendano PA [address] [facility] [address] [place] [address] PCP - General Internal Medicine 05/09/23 documented as of this encounter
--- OUTSIDE RECORDS SUMMARY | 2025-04-24 03:01 | XMS_ITS | Clinical Summary ---
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 Gender Identity Not on file Sexual Orientation Not on file Plan of Treatment Health Maintenance Due Date Last Done Comments Hepatitis C Virus (HCV) Screening 1975 TdaP Immunization 1975 Hepatitis B Immunization (1 of 3 - 19+ 3-dose series) 1994 Pap Smear 1996 Cervical Cancer Screening (CCS) 2005 HPV/Cotest 2005 Cologuard 2020 Colonoscopy 2020 Colorectal Cancer Screening 2020 Immunochemical Fecal Occult Blood 2020 SARS-COV-2 Immunization ( season) 2024 Influenza Immunization (#1) 05/20/202507/20, 2016, 07/14/2015 Respiratory Syncytial Virus (RSV) Immunization (Adult) (1 - 1-dose 75+ series) 2050 Human Papillomavirus (HPV) Immunization Aged Out No longer eligible b ased on patient's age to complete this topic Meningococcal Immunization (ACWY) Aged Out No longer eligible b ased on patient's age to complete this topic Pneumococcal Immunization Combined Aged Out No longer eligible b ased on patient's age to complete this topic Rotavirus Immunization Aged Out No lo nger eligible based on patient's age to complete this topic Insurance [employer] on file
--- OUTSIDE RECORDS SUMMARY | 2025-04-24 03:01 | XMS_ITS | Referral Summary ---
Author Organization [facility] [address] [facility] Address [address] [place] [phone] Care Team Providers Care Heel Finisher Name Role Phone Judy Avendano Primary Care Provider [phone] Encounters Date Type Department Care Team Description 04/02/2025 Results Follow-Up [facility] Medical [facility] Family Medicine [address] [place] [address] [place] [phone] Judy Avendano PA HM MAMMOGRAPHY 04/02/2025 Orders Only [facility] Family Medicine [address] [place] [address] [place] [phone] Provider, MD Jared from Last 3 Months Allergies No known [...] 07/14/2024 Assessment & Plan (09/24/2024 8:03 PM DIGITAL MARKETER): Stabilized with EffexorXr 75. Happy with results. [...] Encouraged to follow back up with Dr. Nomran and get rescheduled. Assessment & Plan (07/08/2023 11:42 PM CDT): Colon cancer screening due. Refer back to Dr. Will as last done in 2018 Breast cancer screening by mammogram 07/08/2023 Assessment & Plan (09/24/2024 8:03 PM DIGITAL MARKETER): Mammogram order provided Assessment & Plan (07/08/2023 11:42 PM CDT): Mammogram order provided Family history of colon cancer in mother 023 Assessment & Plan (07/08/2023 11:42 PM CDT): Due for colon cancer screening Situational anxiety 07/15/2017 Assessment & Plan (09/24/2024 8:03 PM DIGITAL MARKETER): Stabilized with EffexorXr 75. Happy with results. [...] Order provided. Symptoms persist will send to [facility] scoliosis specialist Resolved Problems Problem Noted [...] migrainosus 07/15/2017 07/14/2024 Left shoulder pain 02/02/2016 Immunizations Immunization Administration Dates Next Due Influenza, [...] on file Legal Sex Female 10:28 PM DIGITAL MARKETER Gender Identity Not on file Sexual Orientation [...] - Final from Last 3 Months Insurance [facility] [employer] [place] [id number] [facility] Care Teams Heel Finisher Relationship Specialty Start Date End Date Judy Avendano PA [address] [facility] [address] [place] [address] PCP - General Internal Medicine 05/09/23
[2025-04-24 09:27] VITALS: BP 118/71; PULSE 69; RESP 18; TEMP 36.4; O2SAT 100; BMI 25.4
--- NOTE | 2025-04-24 09:30 | WPDANESEPPF ---
Anes - Initial Pre Proc Eval Procedure: Operation Date: 04/24/25 10:30 Proposed Procedures p Screening Colonoscopy - French Gurrola MD Date/Time: 04/24/25 09:30 Surgeon: French Gurrola MD Pre Op Diagnosis: Screening Patient Data Age: 49 Gender: F Height: 1.75 m Weight: 78.5 kg Allergies Allergy/AdvReac Type Severity Reaction Status Date / Time No Known Allergies Allergy Verified 04/24/25 09:25 Home Medications ?Medication ?Instructions ?Recorded ?Confirmed ?Type ondansetron 8 mg disintegrating 8 mg PO Q8H PRN nausea and 08/27/21 04/08/25 Rx tablet vomiting #30 tabs buspirone 15 mg tablet 15 mg PO BID #60 tabs 04/13/22 04/24/25 Rx cyclobenzaprine 10 mg tablet 10 mg PO DAILY PRN muscle spasm 04/13/22 04/08/25 Rx #30 tabs ubrogepant 100 mg tablet (Ubrelvy) 100 mg PO ONCE #12 tabs 04/13/22 04/24/25 Rx estradiol 0.1 mg/24 hr weekly 1 patch transdermal .twice a week 04/08/25 04/24/25 History transdermal patch (Climara) Patient hx anesthesia problems: none Family hx anesthesia problems: none Results Review: All pre-operative results and documents have been reviewed as part of the pre-operative evaluation. [facility] Past Medical History Medical History (Updated 07/28/22 @ 13:34 by Fabiola Mark NP) Microscopic hematuria Muscle spasm Fatigue Hematuria BMI 25.0-25.9,adult Depression Encounter to establish care Screening for endocrine disorder Wellness examination Family History Family History Other Depression Diabetes mellitus Family history of arthritis Family history of blood dyscrasia Family history of cardiovascular disease Family history of irritable bowel syndrome Family history of thyroid disease Social History Social History (Updated 04/24/25 @ 09:40 by Rich Quiroga DO) Smoking status: Former smoker Tobacco type: cigarettes Alcohol intake: current Drinks per week: 3 Substance use: current Substance use type: marijuana Other substance usage details: rarely Lack of Transportation: No Lack of Food: Never True Current Housing: I Have Housing Concerned About Future Housing: No Difficulty Paying Gas/Electric Bills: No Difficulty Paying for Meds: No Currently Unemployed: No Education: Associate Degree Difficulty w/ Childcare or Family Care: No Living arrangements: with family Spiritual care concerns: No Anes - Eval Final PreProcedure Day of Procedure 04/24/25 09:30 Patient weight: overweight Heart: regular rate and rhythm Lungs: clear to auscultation Airway: Mallampati scale class II Neurological: alert and oriented Last oral intake: >/= 8 hours ASA classification: II Emergent: no Anesthetic plan: proceed Anesthesia type and monitoring: general GIVS and standard monitoring Results Review: All pre-operative results and documents have been reviewed as part of the pre-operative evaluation. Informed Consent: The patient's anesthetic plan and its attendant risks and benefits were discussed with the patient/family/POA. Questions were solicited and answers provided to the satisfaction of the patient/family/POA.
[2025-04-24] MEDS: LACTATED RINGERS 1,000 ML 150 ML IV CONT (09:33)
--- NOTE | 2025-04-24 10:28 | P.HP_ITS ---
History of Present Illness History of Present Illness Consent: Risks, benefits, and alternatives have been discussed and questions answered. Patient agrees to proceed with procedure. Chief complaint: Screening Narrative: Jody Wolf is a 49 year old female here for colonoscopy, last one about 10 years ago, mother had colon cancer. Review of Systems Review of Systems: All systems reviewed & are unremarkable except as noted in HPI and below PMFSH Past Medical History Medical History (Updated 04/24/25 @ 10:30 by French Gurrola MD) Colon cancer screening Microscopic hematuria Muscle spasm Fatigue Hematuria BMI 25.0-25.9,adult Depression Encounter to establish care Screening for endocrine disorder Wellness examination Family History Family History Other Depression Diabetes mellitus Family history of arthritis Family history of blood dyscrasia Family history of cardiovascular disease Family history of irritable bowel syndrome Family history of thyroid disease Social History Social History (Updated 04/24/25 @ 09:40 by Rich Quiroga DO) Smoking status: Former smoker Tobacco type: cigarettes Alcohol intake: current Drinks per week: 3 Substance use: current Substance use type: marijuana Other substance usage details: rarely Lack of Transportation: No Lack of Food: Never True Current Housing: I Have Housing Concerned About Future Housing: No Difficulty Paying Gas/Electric Bills: No Difficulty Paying for Meds: No Currently Unemployed: No Education: Associate Degree Difficulty w/ Childcare or Family Care: No Living arrangements: with family Spiritual care concerns: No Meds Home Medications and Allergies Home Medications ?Medication ?Instructions ?Recorded ?Confirmed ?Type ondansetron 8 mg disintegrating 8 mg PO Q8H PRN nausea and 08/27/21 04/08/25 Rx tablet vomiting #30 tabs buspirone 15 mg tablet 15 mg PO BID #60 tabs 04/13/22 04/24/25 Rx cyclobenzaprine 10 mg tablet 10 mg PO DAILY PRN muscle spasm 04/13/22 04/08/25 Rx #30 tabs ubrogepant 100 mg tablet (Ubrelvy) 100 mg PO ONCE #12 tabs 04/13/22 04/24/25 Rx estradiol 0.1 mg/24 hr weekly 1 patch transdermal .twice a week 04/08/2503/13 History transdermal patch (Climara) Allergies Allergy/AdvReac Type Severity Reaction Status Date / Time No Known Allergies Allergy Verified 04/24/25 09:25 Vital Signs Vital Signs - 24 hr 04/24/25 09:27 Temperature 97.5 F L Pulse Rate 69 Respiratory Rate 18 Blood Pressure 118/71 Pulse Oximetry 100 Oxygen Delivery Room Air Exam Const: General: comfortable and no acute distress HENMT: Face/Nose/Sinus: Normal nares present Eyes: General: appearance normal, both eyes and all related structures Neck: Neck: no JVD Resp: Auscultation: clear to auscultation bilaterally Cardio: Rate: regular rate Rhythm: regular rhythm GI: Inspection: non-distended GI Palp: Yes Soft to palpation Skin: General skin exam: normal color Neuro: Speech: normal speech Extrem: General: normal to inspection Psych: Mental Status: mental status grossly normal Assessment and Plan Assessment and plan (1) Colon cancer screening: Code(s): Z12.11 - Encounter for screening for malignant neoplasm of colon Status: Acute Assessment and Plan: colonoscopy
[2025-04-24 10:44] VITALS: BP 86/57; PULSE 80; RESP 20; O2SAT 99
[2025-04-24 10:44] LABS: BEDSIDEPREGUCG Negative (Negative)
[2025-04-24 10:54] VITALS: BP 108/72; PULSE 69; RESP 18; O2SAT 100
[2025-04-24 11:04] VITALS: BP 114/73; PULSE 68; RESP 19; O2SAT 100
== END 2025-04-24 11:12 | disposition home or self-care (01) ==
PROVIDERS: PCP Physician Assistant; Referring Provider Physician Assistant; Visit Provider Internal Medicine Gastroenterology
PROC: 0DJD8ZZ Inspection of Lower Intestinal Tract, Via Natural or Artificial Opening Endoscopic (ICD-10-PCS; CPT 45378; principal; 2025-04-24 10:30)
DX: Z12.11 Encounter for screening for malignant neoplasm of colon (principal); K64.8 Other hemorrhoids; F32.A Depression, unspecified; R31.29 Other microscopic hematuria; M62.838 Other muscle spasm; F12.90 Cannabis use, unspecified, uncomplicated; Z87.891 Personal history of nicotine dependence; Z80.0 Family history of malignant neoplasm of digestive organs; Z82.49 Family history of ischemic heart disease and other diseases of the circulatory system
CPT/HCPCS: 45378; J2003; J2704; J7120